=== PATIENT | male | born 1995 | race African-American/Black ===

== ENCOUNTER 2019-01-11 09:21 | Emergency (ER) | payer OTHER ==
--- NOTE | 2019-01-11 09:36 | EDM.PDOC ---
ED HPI GENERAL MEDICAL PROBLEM - General Time Seen by Provider: 01/11/19 09:34 - History of Present Illness INITIAL COMMENTS - FREE TEXT/NARRATIVE: Pt presents c/o penal discharge. Was treated x 2 wks ago for chlamydia but has had unprotected sex with someone who has not been treated. - Related Data Allergies Allergy/AdvReac Type Severity Reaction Status Date / Time No Known Allergies Allergy Verified 01/11/19 09:41 Home Meds: Home Meds . [No Known Home Meds] 01/11/19 [History] ED ROS GENERAL - Review of Systems Review Of Systems: See Below Constitutional: Reports: No Symptoms HEENT: Reports: No Symptoms Respiratory: Reports: No Symptoms Cardiovascular: Reports: No Symptoms Endocrine: Reports: No Symptoms GI/Abdominal: Reports: No Symptoms : Reports: Discharge Musculoskeletal: Reports: No Symptoms Skin: Reports: No Symptoms Neurological: Reports: No Symptoms Psychiatric: Reports: No Symptoms Hematologic/Lymphatic: Reports: No Symptoms Immunologic: Reports: No Symptoms ED EXAM, GENERAL - Physical Exam Exam: See Below Exam Limited By: No Limitations General Appearance: Alert, WD/WN, No Apparent Distress Ears: Normal External Exam Nose: Normal Inspection Throat/Mouth: Normal Inspection Head: Atraumatic, Normocephalic Neck: Normal Inspection Respiratory/Chest: No Respiratory Distress Cardiovascular: Normal Peripheral Pulses Neurological: Alert, Oriented Psychiatric: Normal Affect, Normal Mood Skin Exam: Warm, Dry, Intact, Normal Color Course - Vital Signs Last Recorded V/S: Last Vital Signs Temp 36.1 C 01/11/19 09:30 Pulse 97 01/11/19 09:30 Resp 16 01/11/19 09:30 BP 134/70 01/11/19 09:30 Pulse Ox 97 01/11/19 09:30 - Orders/Labs/Meds Orders: Active Orders 24 hr Category Date Time Status CHLAMYDIA AND GONORRHEA BY [facility] Stat Lab 01/11/19 09:36 Ordered Meds: Medications Discontinued Medications Generic Name Dose Route Start Last Admin Trade Name Freq PRN Reason Stop Dose Admin Azithromycin 1,000 mg 01/11/19 09:43 Zithromax PO 01/11/19 09:44 ONETIME ONE Ceftriaxone Sodium 250 mg 01/11/19 09:44 Rocephin IM 01/11/19 09:45 ONETIME ONE Departure - Departure Time of Disposition: 09:46 Disposition: Home, Self-Care 01 Condition: Good Clinical Impression: STD (sexually transmitted disease) - Discharge Information Instructions: Sexually Transmitted Disease, [id number] Care Plan Goals: No sexual activity for 1 week - My Orders Last 24 Hours: My Active Orders 01/11/19 09:36 CHLAMYDIA AND GONORRHEA BY [facility] Stat - Assessment/Plan Last 24 Hours: My Active Orders 01/11/19 09:36 CHLAMYDIA AND GONORRHEA BY [facility] Stat
[2019-01-11] MEDS ORDERED: Azithromycin 250 MG Tab PO ONE (09:43)
[2019-01-11] MEDS ORDERED: cefTRIAXone 500 MG Vial IM ONE (09:44)
== END 2019-01-11 10:25 | disposition home or self-care (01) ==
LOC: VM.ED 09:21
DX: A64 Unspecified sexually transmitted disease (principal)
CPT/HCPCS: 87491; 87591; 96372; 99283; A9270; J0696